=== PATIENT | male | born 1940 | race Hispanic/Latino ===

== ENCOUNTER 2021-11-02 08:14 | Emergency (ER) | payer MEDICARE ==
[~2021-11-02] VITALS: Ht 175.3 cm; Wt 77.1 kg
[2021-11-02 08:31] VITALS: BP 187/96
[2021-11-02] MEDS ORDERED: SILVER NITRATE APPLICATOR 1 SWAB TP SCH (09:00)
[2021-11-02] MEDS ORDERED: SILVER NITRATE APPLICATOR 1 SWAB TP ONE (09:00)
== END 2021-11-02 10:04 | disposition home or self-care (01) ==
LOC: EDH 08:14
DX: R04.0 Epistaxis (principal); M19.90 Unspecified osteoarthritis, unspecified site
CPT/HCPCS: 30901

== ENCOUNTER 2022-07-08 09:40 | Emergency (ER) | payer MEDICARE ==
[~2022-07-08] VITALS: Ht 165.1 cm; Wt 77.1 kg
[2022-07-08] MEDS ORDERED: OXYMETAZOLINE HCL SPRAY 15 ML BOTTLE EN STA (09:51)
[2022-07-08] MEDS ORDERED: SODI50DR NS (10:28)
[2022-07-08 10:39] VITALS: BP 167/85
== END 2022-07-08 10:40 | disposition home or self-care (01) ==
LOC: EDH 09:40
DX: R04.0 Epistaxis (principal); I10 Essential (primary) hypertension; M19.90 Unspecified osteoarthritis, unspecified site

== ENCOUNTER 2022-08-12 18:12 | Emergency (ER) | payer MEDICARE ==
[~2022-08-12] VITALS: Ht 175.3 cm; Wt 77.1 kg
[~2022-08-12 18:12] MED LIST: SODI50DR NS
[2022-08-12] MEDS ORDERED: DIPHENHYDRAMINE HCL 25 MG CAPSULE PO ONE (19:30)
[2022-08-12] MEDS ORDERED: SOLU-MEDROL 125MG VIAL IM ONE (19:30)
[2022-08-12] MEDS ORDERED: FAMOTIDINE 20MG TAB PO ONE (19:30)
[2022-08-12 20:01] LABS: BASOPHILS % (AUTO) 0.4 % (0.0-5.0); EOSINOPHILS % (AUTO) 4.4 % (0.0-8.0); HEMATOCRIT 40.3 % (42-54); LYMPHOCYTES % (AUTO) 19.2 % (21.0-51.0); MEAN CORPUSCULAR HEMOGLOBIN 31.9 pg (27.0-33.0); MEAN CORPUSCULAR HGB CONC 35.7 g/dL (32.0-36.0); MEAN CORPUSCULAR VOLUME 89.2 fL (79-99); MONOCYTES % (AUTO) 8.4 % (3.0-13.0); NEUTROPHILS % (AUTO) 67.4 % (40.0-77.0); PLATELET COUNT (AUTO) 129 K/uL (130-400); RED BLOOD CELL COUNT(AUTO) 4.52 MIL/uL (4.50-6.20); RED CELL DISTRIBUTION WIDTH 12.9 % (11.0-15.5)
[2022-08-12 20:11] LABS: CREATININE 1.3 mg/dL (0.5-1.5); POTASSIUM 3.4 mmol/L (3.5-5.1)
[2022-08-12 20:20] LABS: ALBUMIN 3.7 g/dL (3.5-5.0); TOTAL PROTEIN, SERUM 6.7 g/dL (6.0-8.3)
[2022-08-12 20:36] LABS: APPEARANCE,URINE CLEAR (CLEAR); BILIRUBIN,URINE NEGATIVE (NEGATIVE); COLOR,URINE LIGHT-YELLOW (YELLOW); GLUCOSE, URINE (UA) NEGATIVE (NEGATIVE); KETONES,URINE NEGATIVE (NEGATIVE); LEUKOCYTE ESTERASE ,URINE NEGATIVE Leu/uL (NEGATIVE); NITRATE,URINE NEGATIVE (NEGATIVE); OCCULT BLOOD,URINE NEGATIVE (NEGATIVE); PROTEIN,URINE NEGATIVE (NEGATIVE); UROBILINOGEN,URINE 0.2 mg/dL (0.2-1.0)
[2022-08-12] MEDS ORDERED: PRED20TA3 PO (20:47)
[2022-08-12] MEDS ORDERED: DIPH-1242 PO (20:47)
[2022-08-12 21:49] VITALS: BP 132/76
== END 2022-08-12 21:51 | disposition home or self-care (01) ==
LOC: EDH 18:12
DX: L25.8 Unspecified contact dermatitis due to other agents (principal); T36.0X5A Adverse effect of penicillins, initial encounter; Y92.89 Other specified places as the place of occurrence of the external cause; M19.90 Unspecified osteoarthritis, unspecified site; I10 Essential (primary) hypertension; Z98.890 Other specified postprocedural states
CPT/HCPCS: 80053; 85025; 81003; 36415; 96372; 99283; Q0163; J2930

== ENCOUNTER → 2023-06-19 | Outpatient (CLI) | payer MEDICARE ==
[~2023-06-19] MED LIST changes: +DIPH-1242 PO; +PRED20TA3 PO
== END | disposition home or self-care (01) ==
LOC: RAH 10:15
PROVIDERS: ATTEND Physical Medicine & Rehabilitation
DX: M54.6 Pain in thoracic spine (principal)
CPT/HCPCS: 72070